=== PATIENT | male | born 1980 | race Caucasian/White ===

== ENCOUNTER 2024-03-12 12:44 | Emergency (ER) | payer MEDICAID ==
[~2024-03-12] VITALS: Ht 177.8 cm; Wt 113.4 kg
[2024-03-12 13:08] VITALS: BP 162/86; PULSE 66; RESP 16; TEMP 98.4; O2SAT 100
== END 2024-03-12 16:10 | disposition home or self-care (01) ==
LOC: ER 15:05
DX: S51.811D Laceration without foreign body of right forearm, subsequent encounter (principal); I10 Essential (primary) hypertension; X58.XXXD Exposure to other specified factors, subsequent encounter
CPT/HCPCS: 99281